=== PATIENT | male | born 1990 | race Caucasian/White ===

== ENCOUNTER 2023-02-07 07:21 | Emergency (ER) | payer OTHER, SELFPAY ==
[2023-02-07] MEDS ORDERED: Morphine 4 MG/ML VIAL ONE ×2 (07:31→10:07)
== END 2023-02-07 12:03 | disposition home or self-care (01) ==
LOC: ERS 07:21
DX: S32.019A Unspecified fracture of first lumbar vertebra, initial encounter for closed fracture (principal); S30.0XXA Contusion of lower back and pelvis, initial encounter; I10 Essential (primary) hypertension; F17.290 Nicotine dependence, other tobacco product, uncomplicated; W01.0XXA Fall on same level from slipping, tripping and stumbling without subsequent striking against object, initial encounter
CPT/HCPCS: 72100; 72131; 72192; 96374; 96376; J2270

== ENCOUNTER 2023-02-12 19:29 | Emergency (ER) | payer SELFPAY | END 2023-02-12 21:10 | disposition home or self-care (01) | LOC: ERS 19:29 | DX: R20.2 Paresthesia of skin (principal); I10 Essential (primary) hypertension; F17.290 Nicotine dependence, other tobacco product, uncomplicated | CPT/HCPCS: 99283 ==

== ENCOUNTER 2023-02-21 15:29 | Outpatient (CLI) | payer OTHER | END 2023-02-21 15:30 | disposition home or self-care (01) | LOC: RAD 15:29 | PROVIDERS: ATTEND Neurological Surgery | DX: S32.010A Wedge compression fracture of first lumbar vertebra, initial encounter for closed fracture (principal) | CPT/HCPCS: 72100 ==

== ENCOUNTER 2024-03-30 22:39 | Emergency (ER) | payer SELFPAY ==
[2024-03-31] MEDS ORDERED: Ketorolac Tromethamine 30 MG (1 mL) VIAL ONE (01:50)
== END 2024-03-31 02:36 | disposition home or self-care (01) ==
LOC: ERS 22:39
DX: M25.551 Pain in right hip (principal); I10 Essential (primary) hypertension; F17.290 Nicotine dependence, other tobacco product, uncomplicated
CPT/HCPCS: 72170; 96372; J1885